=== PATIENT | male | born 1980 | race American Indian/Alaskan Native ===

== ENCOUNTER 2021-02-13 15:35 | Emergency (ER) | payer OTHER ==
[2021-02-13] MEDS: Sodium Chloride 0.9% 1,000 ML IV ONE (16:07)
[2021-02-13] MEDS: Ondansetron 4 MG/2 ML SDV IVPUSH ONE ×3 (16:08→17:06)
[2021-02-13] MEDS: Pantoprazole 40 MG Vial IVPUSH ONE (16:30)
--- NOTE | 2021-02-13 16:35 | EDM.PDOC ---
ED HPI GENERAL MEDICAL PROBLEM - General Chief Complaint: Gastrointestinal Problem Stated Complaint: GI BLEED Time Seen by Provider: 02/13/21 16:00 Source of Information: Reports: Patient, Old Records - History of Present Illness INITIAL COMMENTS - FREE TEXT/NARRATIVE: 40-year-old gentleman with a past medical history significant for alcohol abuse with alcohol cirrhosis, esophageal varices, pancytopenia came to the hospital due to a recent history over the last several hours of nausea vomiting with bright red blood. Does not drink regularly anymore but did drink yesterday, he had liquor. He is an otherwise good health and prior to this was in good health and had no acute complaints. - Related Data Allergies Allergy/AdvReac Type Severity Reaction Status Date / Time ibuprofen Allergy Verified 12/24/12 10:24 Home Meds: Home Meds prednisoLONE Acetate [Prednisolone Acetate] 2 drop Q4H 10/16/14 [History] Past Medical History - Past Health History Medical/Surgical History: Denies Medical/Surgical History ED ROS GENERAL - Review of Systems Review Of Systems: See Below Constitutional: Reports: Weakness HEENT: Reports: No Symptoms Respiratory: Reports: Shortness of Breath Cardiovascular: Reports: No Symptoms Endocrine: Reports: No Symptoms GI/Abdominal: Reports: Abdominal Pain, Hematemesis, Nausea, Vomiting : Reports: No Symptoms Musculoskeletal: Reports: No Symptoms Skin: Reports: No Symptoms Psychiatric: Reports: Anxiety Hematologic/Lymphatic: Reports: No Symptoms Immunologic: Reports: No Symptoms ED EXAM, GI/ABD - Physical Exam Exam: See Below Exam Limited By: No Limitations General Appearance: Moderate Distress Eyes: Bilateral: EOMI Head: Atraumatic, Normocephalic Neck: Normal Inspection Respiratory/Chest: Lungs Clear Cardiovascular: Tachycardia GI/Abdominal Exam: Normal Bowel Sounds, Soft, Non-Tender Back Exam: Normal Inspection Extremities: Normal Inspection Neurological: Alert, Oriented, Normal Cognition Psychiatric: Anxious Skin Exam: Warm, Dry Course - Vital Signs Text/Narrative:: Patient had a melenic bowel movement while in the exam room. Patient received 80 mg pantoprazole IV, 1 L normal saline, 50 mcg octreotide bolus and started 50 mcg/h octreotide drip, and patient given 1 g ceftriaxone Laboratory results are consistent with GI bleed. Platelets are only 38. We do not have we do not have platelets at the hospital and ordering would take more than 1 hour to get them here. INR is 1.42. Hemoglobin is 6.9 we have initiated 1 unit packed red blood cells. Patient was given a second 4 mg dose of Zofran because he is continuing to have nausea and vomiting. Patient will be transported to [facility] for further evaluation and treatment. - Orders/Labs/Meds Orders: Active Orders 24 hr Category Date Time Status CORONAVIRUS COVID-19 GLORY [MOLEC] Urgent Lab 02/13/21 16:32 Ordered CULTURE BLOOD [BC] Urgent Lab 02/13/21 16:53 Ordered CULTURE BLOOD [BC] Urgent Lab 02/13/21 16:53 Ordered PATIENT RETYPE [BBK] Routine Lab 02/13/21 16:15 Results RED BLOOD CELLS LP [BBK] Routine Lab 02/13/21 16:15 Results TYPE AND SCREEN [BBK] Routine Lab 02/13/21 16:15 Received Octreotide [SandoSTATIN] 250 mcg Med 02/13/21 16:30 Active Sodium Chloride 0.9% [Normal Saline] 250 ml IV Q10H Sodium Chloride 0.9% [Normal Saline] 1,000 ml Med 02/13/21 16:28 Active IV .BOLUS Sodium Chloride 0.9% [Normal Saline] 250 ml Med 02/13/21 17:15 Ordered IV ASDIRECTED Blood Culture x2 Reflex Set [OM.PC] Urgent Oth 02/13/21 16:52 Ordered Transfuse PRBC [Transfuse Red Blood Cells] [COMM] Stat Oth 02/13/21 17:03 Ordered Medication Orders Sodium Chloride (Normal Saline) 1,000 mls @ 999 mls/hr IV .BOLUS ONE Stop: 02/13/21 17:28 Last Admin: 02/13/21 16:07 Dose: 999 mls/hr Documented by: CHAUNCEY Octreotide Acetate 250 mcg/ (Sodium Chloride) 252.5 mls @ 50.5 mls/hr IV Q10H LENNIE Last Admin: 02/13/21 17:01 Dose: 50 mcg/hr, 50.5 mls/hr Documented by: CHAUNCEY Sodium Chloride (Normal Saline) 250 mls @ 100 mls/hr IV ASDIRECTED LENNIE Labs: Laboratory Tests 02/13/21 02/13/21 02/13/21 Range/Units 16:15 16:15 16:15 WBC 3.9 (3.2-10.1) x10-3/uL RBC 3.45 L (3.90-5.90) x10(6)uL Hgb 6.9 L* (12.9-17.7) g/dL Hct 24.9 L (38.3-50.1) % MCV 72.2 L (80.8-98.7) fL MCH 20.1 L (27.0-33.3) pg MCHC 27.8 L (28.7-35.3) g/dL RDW 21.9 H (12.4-15.0) % Plt Count 38 L (117-477) x10(3)uL MPV 8.0 (6.7-11.0) fL Neut % (Auto) 82.0 H (40.3-71.8) % Lymph % (Auto) 10.2 L (15.8-45.3) % Dickens % (Auto) 6.2 (5.5-15.2) % Eos % (Auto) 0.6 (0.1-6.8) % Baso % (Auto) 1.0 (0.3-3.8) % Neut # (Auto) 3.2 (1.7-6.9) x10-3/uL Lymph # (Auto) 0.4 L (0.5-4.5) x10-3/uL Dickens # (Auto) 0.2 (0.0-1.2) x10-3/uL Eos # (Auto) 0.0 (0.0-0.6) x10-3/uL Baso # (Auto) 0.0 (0.0-0.3) x10-3/uL PT 15.0 H (9.0-11.1) sec INR 1.42 H (1.00-1.24) APTT 27.6 (24.4-33.2) SECONDS Sodium 143 (135-145) mmol/L Potassium 3.7 (3.5-5.3) mmol/L Chloride 108 (100-110) mmol/L Carbon Dioxide 20 L (21-32) mmol/L BUN 27 H (7-18) mg/dL Creatinine 1.1 (0.70-1.30) mg/dL Est Cr Clr Drug Dosing TNP Estimated GFR (MDRD) > 60 (>60) BUN/Creatinine Ratio 24.5 H (9-20) Glucose 118 H (80-116) mg/dL Calcium 7.2 L (8.6-10.2) mg/dL Magnesium 1.7 L (1.8-2.5) mg/dL Total Bilirubin 2.7 H (0.1-1.3) mg/dL AST 42 H (5-25) IU/L ALT 14 (12-36) U/L Alkaline Phosphatase 159 H (56-112) IU/L Total Protein 6.1 (6.0-8.0) g/dL Albumin 2.4 L (3.5-5.2) g/dL Globulin 3.7 g/dL Albumin/Globulin Ratio 0.7 Ethyl Alcohol (<0.03) % Blood Type Gel Antibody Screen Crossmatch 02/13/21 02/13/21 Range/Units 16:15 16:15 WBC (3.2-10.1) x10-3/uL RBC (3.90-5.90) x10(6)uL Hgb (12.9-17.7) g/dL Hct (38.3-50.1) % MCV (80.8-98.7) fL MCH (27.0-33.3) pg MCHC (28.7-35.3) g/dL RDW (12.4-15.0) % Plt Count (117-477) x10(3)uL MPV (6.7-11.0) fL Neut % (Auto) (40.3-71.8) % Lymph % (Auto) (15.8-45.3) % Dickens % (Auto) (5.5-15.2) % Eos % (Auto) (0.1-6.8) % Baso % (Auto) (0.3-3.8) % Neut # (Auto) (1.7-6.9) x10-3/uL Lymph # (Auto) (0.5-4.5) x10-3/uL Dickens # (Auto) (0.0-1.2) x10-3/uL Eos # (Auto) (0.0-0.6) x10-3/uL Baso # (Auto) (0.0-0.3) x10-3/uL PT (9.0-11.1) sec INR (1.00-1.24) APTT (24.4-33.2) SECONDS Sodium (135-145) mmol/L Potassium (3.5-5.3) mmol/L Chloride (100-110) mmol/L Carbon Dioxide (21-32) mmol/L BUN (7-18) mg/dL Creatinine (0.70-1.30) mg/dL Est Cr Clr Drug Dosing Estimated GFR (MDRD) (>60) BUN/Creatinine Ratio (9-20) Glucose (80-116) mg/dL Calcium (8.6-10.2) mg/dL Magnesium (1.8-2.5) mg/dL Total Bilirubin (0.1-1.3) mg/dL AST (5-25) IU/L ALT (12-36) U/L Alkaline Phosphatase (56-112) IU/L Total Protein (6.0-8.0) g/dL Albumin (3.5-5.2) g/dL Globulin g/dL Albumin/Globulin Ratio Ethyl Alcohol 0.03 (<0.03) % Blood Type O POSITIVE Gel Antibody Screen Negative Crossmatch See Detail Meds: Medications Generic Name Dose Route Start Last Admin Trade Name Freq PRN Reason Stop Dose Admin Sodium Chloride 1,000 mls @ 999 mls/hr 02/13/21 16:28 02/13/21 16:07 Normal Saline IV 02/13/21 17:28 999 mls/hr .BOLUS ONE Administration Octreotide Acetate 250 mcg/ 252.5 mls @ 50.5 mls/hr 02/13/21 16:30 02/13/21 17:01 Sodium Chloride IV 50 mcg/hr Q10H LENNIE 50.5 mls/hr Administration 50 MCG/HR Sodium Chloride 250 mls @ 100 mls/hr 02/13/21 17:15 Normal Saline IV ASDIRECTED LENNIE Discontinued Medications Generic Name Dose Route Start Last Admin Trade Name Freq PRN Reason Stop Dose Admin Ceftriaxone Sodium 1 gm/ 50 mls @ 200 mls/hr 02/13/21 16:30 02/13/21 16:54 Sodium Chloride IV 02/13/21 16:44 200 mls/hr ONETIME ONE Administration Octreotide Acetate 50 mcg 02/13/21 16:28 02/13/21 16:49 Octreotide 100 Mcg/Ml Sdv IVPUSH 02/13/21 16:29 50 mcg ONETIME ONE Administration Ondansetron HCl 4 mg 02/13/21 16:00 02/13/21 16:08 Ondansetron 4 Mg/2 Ml Sdv IVPUSH 02/13/21 16:01 4 mg ONETIME ONE Administration Ondansetron HCl 4 mg 02/13/21 16:28 02/13/21 16:58 Ondansetron 4 Mg/2 Ml Sdv IVPUSH 02/13/21 16:29 Not Given ONETIME ONE Ondansetron HCl 4 mg 02/13/21 17:03 02/13/21 17:06 Ondansetron 4 Mg/2 Ml Sdv IVPUSH 02/13/21 17:04 4 mg ONETIME ONE Administration Pantoprazole Sodium 80 mg 02/13/21 16:29 02/13/21 16:30 Pantoprazole 40 Mg Vial IVPUSH 02/13/21 16:30 80 mg .BOLUS ONE Administration Departure - Departure Time of Disposition: 17:20 Disposition: DC/Tfer to [facility] 02 Clinical Impression: Upper GI bleed - Discharge Information *PRESCRIPTION DRUG MONITORING PROGRAM REVIEWED*: Not Applicable *COPY OF PRESCRIPTION DRUG MONITORING REPORT IN PATIENT TRISH: Not Applicable Instructions: Gastrointestinal Bleeding Forms: ED Department Discharge - My Orders Last 24 Hours: My Active Orders 02/13/21 16:15 PATIENT RETYPE [BBK] Routine RED BLOOD CELLS LP [BBK] Routine TYPE AND SCREEN [BBK] Routine 02/13/21 16:28 Sodium Chloride 0.9% [Normal Saline] 1,000 ml IV .BOLUS 02/13/21 16:30 Octreotide [SandoSTATIN] 250 mcg Sodium Chloride 0.9% [Normal Saline] 250 ml IV Q10H 02/13/21 16:32 CORONAVIRUS COVID-19 GLORY [MOLEC] Urgent 02/13/21 16:52 Blood Culture x2 Reflex Set [OM.PC] Urgent 02/13/21 16:53 CULTURE BLOOD [BC] Urgent CULTURE BLOOD [BC] Urgent 02/13/21 17:03 Transfuse PRBC [Transfuse Red Blood Cells] [COMM] Stat 02/13/21 17:15 Sodium Chloride 0.9% [Normal Saline] 250 ml IV ASDIRECTED - Assessment/Plan Last 24 Hours: My Active Orders 02/13/21 16:15 PATIENT RETYPE [BBK] Routine RED BLOOD CELLS LP [BBK] Routine TYPE AND SCREEN [BBK] Routine 02/13/21 16:28 Sodium Chloride 0.9% [Normal Saline] 1,000 ml IV .BOLUS 02/13/21 16:30 Octreotide [SandoSTATIN] 250 mcg Sodium Chloride 0.9% [Normal Saline] 250 ml IV Q10H 02/13/21 16:32 CORONAVIRUS COVID-19 GLORY [MOLEC] Urgent 02/13/21 16:52 Blood Culture x2 Reflex Set [OM.PC] Urgent 02/13/21 16:53 CULTURE BLOOD [BC] Urgent CULTURE BLOOD [BC] Urgent 02/13/21 17:03 Transfuse PRBC [Transfuse Red Blood Cells] [COMM] Stat 02/13/21 17:15 Sodium Chloride 0.9% [Normal Saline] 250 ml IV ASDIRECTED
[2021-02-13] MEDS: Octreotide 100 MCG/ML SDV IVPUSH ONE (16:49)
[2021-02-13] MEDS: cefTRIAXone 1 GM in Sodium Chloride 0.9% 50 ML IV ONE (16:54)
[2021-02-13] MEDS: Octreotide 250 MCG in Sodium Chloride 0.9% 250 ML IV SCH (17:01)
[2021-02-13] MEDS: Sodium Chloride 0.9% 250 ML IV SCH (17:40)
== END 2021-02-13 17:50 ==
LOC: FB.ED 15:35
DX: K92.2 Gastrointestinal hemorrhage, unspecified (principal); Z88.6 Allergy status to analgesic agent
CPT/HCPCS: 36415; 36430; 80053; 80307; 83735; 85025; 85610; 85730; 86850; 86900; 86901; 86920; 86922; 87040; 96365; 96367; 96375; 96376; 99285; C9113; J0696; J2354; J2405; J7030; J7050; P9016